=== PATIENT | male | born 1970 | race Caucasian/White ===

== ENCOUNTER 2016-05-31 12:06 | Day surgery (SDC) | payer OTHER ==
[~2016-05-31] VITALS: Ht 175.3 cm; Wt 88.5 kg
[~2016-05-31 12:06] MED LIST: ALLEGRA ALLERG180 MG PO; ASPIR 8181 M1 PO; Ascorbic Acid,Ester- PO; Aspirin E.C. PO; FLONASE16 G1 BOTH NARES; LISINOPRIL5 MG PO; LOTREL 5/101 CAPSULE PO; MAGNESIUM400 M1 PO; OXCARBAZEPINE300 MG PO; PERCOCET 5/31 TABLET PO; PERCOCET 7.51 TABLET PO; POTASSIUM GLUCO90 MG PO; TRAMADOL HCL50 MG PO; TRILEPTAL150 MG PO; VITAMIN B-122500 MCG SL; VITAMIN C1000 MG PO
== END 2016-05-31 15:45 | disposition home or self-care (01) ==
LOC: PAIN 12:06 → SDC 12:45 → PAIN 15:45
PROC: 3E0X3CZ (ICD-10-PCS; principal; 2016-05-31)
DX: M47.812 Spondylosis without myelopathy or radiculopathy, cervical region (principal); M54.2 Cervicalgia; F41.9 Anxiety disorder, unspecified; M12.88 Other specific arthropathies, not elsewhere classified, other specified site; G89.29 Other chronic pain; M79.1 Myalgia; I10 Essential (primary) hypertension; E78.5 Hyperlipidemia, unspecified; F32.9 Major depressive disorder, single episode, unspecified; G90.519 Complex regional pain syndrome I of unspecified upper limb; Z82.49 Family history of ischemic heart disease and other diseases of the circulatory system; Z87.891 Personal history of nicotine dependence
CPT/HCPCS: J1030; S0020

== ENCOUNTER 2017-04-04 07:06 | Day surgery (SDC) | payer OTHER ==
[~2017-04-04] VITALS: Ht 180.3 cm; Wt 82.5 kg
[~2017-04-04 07:06] MED LIST changes: +ADVIL200 MG PO; +CEFTIN500 MG PO
== END 2017-04-04 08:35 | disposition home or self-care (01) ==
LOC: PAIN 07:06 → SDC 07:45 → PAIN 07:45
DX: M50.321 Other cervical disc degeneration at C4-C5 level (principal); M54.2 Cervicalgia; G89.29 Other chronic pain; G90.519 Complex regional pain syndrome I of unspecified upper limb; M79.1 Myalgia; Z87.891 Personal history of nicotine dependence; Z79.891 Long term (current) use of opiate analgesic; I10 Essential (primary) hypertension; E78.5 Hyperlipidemia, unspecified
CPT/HCPCS: J1030; J1885; J2250; J3010; S0020